=== PATIENT | female | born 1955 | race Caucasian/White ===

== ENCOUNTER → 2017-04-28 | Outpatient (CLI) | payer OTHER ==
[~2017-04-28] MED LIST: ACLI400A2 INH; ERGO500017 PO; FLUT1DIS3 INH; GUAI1TBM11 PO; IPRA3AMP NPPB; LEVO750T26 PO; LISI1TAB3 PO; LOVA20TA2 PO; NAPR220T77 PO; NICO1PAT16 TD; PRED20TA PO
== END | disposition home or self-care (01) ==
LOC: CFH 07:34
PROVIDERS: ATTEND Family Medicine
DX: Z12.31 Encounter for screening mammogram for malignant neoplasm of breast (principal); N60.01 Solitary cyst of right breast
CPT/HCPCS: G0202

== ENCOUNTER → 2018-05-05 | Outpatient (CLI) | payer OTHER ==
[~2018-05-05] MED LIST changes: -IPRA3AMP NPPB; +IPRA3AMP30 NPPB; +NICO-487 TD; -NICO1PAT16 TD
== END | disposition home or self-care (01) ==
LOC: CFH 08:29
PROVIDERS: ATTEND Family Medicine
DX: Z12.31 Encounter for screening mammogram for malignant neoplasm of breast (principal); F17.200 Nicotine dependence, unspecified, uncomplicated
CPT/HCPCS: 77063; 77067